=== PATIENT | female | born 1975 | race African-American/Black ===

== ENCOUNTER 2020-12-27 14:03 | Emergency (ER) | payer OTHER ==
[2020-12-27 22:46] LABS: SARS-CoV-2 PCR by NAA Not Detected (NotDetected)
== END 2020-12-27 14:44 | disposition home or self-care (01) ==
LOC: ERS 14:03
DX: J02.9 Acute pharyngitis, unspecified (principal); R05 Cough; R06.02 Shortness of breath; Z20.822 Contact with and (suspected) exposure to COVID-19
CPT/HCPCS: 87635; 99283; U0003; U0005

== ENCOUNTER 2024-09-04 11:31 | Emergency (ER) | payer SELFPAY ==
[2024-09-04] MEDS ORDERED: Ketorolac Tromethamine 30 MG (1 mL) VIAL ONE (12:24)
== END 2024-09-04 12:25 | disposition home or self-care (01) ==
LOC: ERS 11:31
DX: M25.561 Pain in right knee (principal); I10 Essential (primary) hypertension; F17.210 Nicotine dependence, cigarettes, uncomplicated
CPT/HCPCS: 96372; 99283; J1885